=== PATIENT | male | born 1950 | race Caucasian/White ===

== ENCOUNTER 2017-03-07 07:49 | Day surgery (SDC) | payer OTHER ==
[~2017-03-07 07:49] MED LIST: ceFAZolin 2 GM/DEXTROSE 100 ML IV ONE
[2017-03-07] MEDS ORDERED: LIDOCAINE 1% 5 ML SDV ID PRN (08:07)
[2017-03-07] MEDS ORDERED: LR 1,000 ML IV ONE (08:07)
[2017-03-07] MEDS ORDERED: ROPIVACAINE HCL 20 MG/10 ML INJ EP ONE (08:24)
[2017-03-07] MEDS ORDERED: MIDAZOLAM 2 MG/2 ML VIAL ONE (09:00)
[2017-03-07] MEDS ORDERED: fentaNYL 100 MCG/2 ML INJ ONE ×2 (09:01→10:29)
[2017-03-07] MEDS ORDERED: EPINEPHrine 30 MG/30 ML MDV ONE (09:13)
[2017-03-07] MEDS ORDERED: PROPOFOL/EMULSION 500 MG/50 ML BOTTLE IV ONE (09:40)
[2017-03-07] MEDS ORDERED: ONDANSETRON 4 MG/2 ML VIAL ONE (11:31)
[2017-03-07] MEDS ORDERED: LIDOCAINE 2% 5 ML SDV ONE (11:31)
[2017-03-07] MEDS ORDERED: ROCURONIUM 50 MG/5 ML VIAL ONE (11:31)
[2017-03-07] MEDS ORDERED: ROPIVACAINE HCL 150 MG/30 ML INJ ONE (11:31)
[2017-03-07] MEDS ORDERED: DEXAMETHASONE 4 MG/ML VIAL ONE (11:31)
[2017-03-07] MEDS ORDERED: SUGAMMADEX SODIUM 200 MG/2 ML VIAL IVP ONE (12:16)
[2017-03-07] MEDS ORDERED: ONDANSETRON 4 MG/2 ML VIAL IVP PRN (12:41)
[2017-03-07] MEDS ORDERED: HYDROmorphONE/DILAUDID 1 MG/ML SYR IVP PRN (12:41)
[2017-03-07] MEDS ORDERED: ACETAMINOPHEN 325 MG TAB PO PRN (12:41)
[2017-03-07] MEDS ORDERED: OXYCODONE/APAP 5/325 TAB PO PRN (12:41)
--- NOTE | 2017-03-07 12:48 | POSTOPPROG ---
Post Op Note Date of Operation: 03/07/17 Surgeon: Ar Rodriguez [employer] Analyst: [email or web address] dominguez pa-c Anesthesiologist: Dr. singh Pre-op Diagnosis: right shoulder rotator cuff tear Post-op Diagnosis: right shoulder rotator cuff tear Procedure: right shoulder rotator cuff repair, biceps tenodesis Findings: torn rotator cuff, shredded biceps Inf/Abcess present in the surg proc area at time of surgery?: No Depth: Deep Incisional (Fascial) EBL: 50-100 Complications: none Drains: Other (none)
[2017-03-07] MEDS ORDERED: LR 1,000 ML IV SCH (13:00)
[2017-03-07] MEDS ORDERED: KETOROLAC 15 MG/1 ML SDV IVP SCH (18:00)
[2017-03-07] MEDS ORDERED: DOCUSATE SODIUM 100 MG CAP PO SCH (21:00)
== END 2017-03-07 14:55 | disposition home or self-care (01) ==
LOC: FSGY 07:49
PROVIDERS: ATTEND Orthopaedic Surgery
PROC: 0LS30ZZ Reposition Right Upper Arm Tendon, Open Approach (ICD-10-PCS; principal; 2017-03-07 09:30)
PROC: 0LQ10ZZ Repair Right Shoulder Tendon, Open Approach (ICD-10-PCS; principal; 2017-03-07 09:30)
DX: M75.101 Unspecified rotator cuff tear or rupture of right shoulder, not specified as traumatic (principal); M75.21 Bicipital tendinitis, right shoulder; M75.41 Impingement syndrome of right shoulder
CPT/HCPCS: C1713; J0690; J1100; J2250; J2405; J2704; J2795; J3010

== ENCOUNTER → 2017-12-28 | Outpatient (CLI) | payer OTHER | LOC: FIMAGING 11:08 | PROVIDERS: ATTEND Internal Medicine | DX: M20.12 Hallux valgus (acquired), left foot (principal); M85.872 Other specified disorders of bone density and structure, left ankle and foot ==

== ENCOUNTER → 2019-02-08 | Outpatient (CLI) | payer OTHER, MEDICARE | LOC: CIMAGING 10:07 | PROVIDERS: ATTEND Internal Medicine | DX: R05 Cough (principal) | CPT/HCPCS: 71046-PO ==